=== PATIENT | male | born 1990 ===

== ENCOUNTER 2019-10-30 11:51 | Emergency (ER) | payer BC ==
--- NOTE | 2019-10-30 15:03 | UC ---
Back Pain HPI - HPI Summary HPI Summary: 29-year-old male presents with complaints of low back pain. States yesterday he was sitting in his office chair and twisted to grab something when he felt a pop in his lower back followed by sudden pain. States pain is constant and worsens with movement, bending, and lifting. Pain is nonradiating. He has been taking ibuprofen 600 mg without relief. Denies difficulty ambulating, numbness, tingling, weakness of the lower extremities, loss of bowel or bladder control. - History of Current Complaint Chief Complaint: UCBackPain Stated Complaint: BACK PAIN Time Seen by Provider: 10/30/19 14:59 Hx Obtained From: Patient Pain Intensity: 10 - Allergies/Home Medications Allergies/Adverse Reactions: Allergies Allergy/AdvReac Type Severity Reaction Status Date / Time No Known Allergies Allergy Verified 10/30/19 12:34 PMH/Surg Hx/FS Hx/Imm Hx Previously Healthy: Yes - Denies significant PMH - Surgical History Surgical History: None - Family History Known Family History: Positive: Non-Contributory - Social History Occupation: Employed Full-time Lives: With Family Alcohol Use: Occasionally Substance Use Type: None Smoking Status (MU): Never Smoked Tobacco Review of Systems All Other Systems Reviewed And Are Negative: Yes Constitutional: Negative: Fever, Chills Respiratory: Positive: Negative Cardiovascular: Positive: Negative Gastrointestinal: Positive: Negative Genitourinary: Positive: Negative Musculoskeletal: Positive: Other: - See HPI Neurological: Negative: Weakness, Paresthesia, Numbness Is Patient Immunocompromised?: No Physical Exam - Summary Physical Exam Summary: GENERAL APPEARANCE: Well developed, well nourished, alert and cooperative, and appears to be in no acute distress. CARDIAC: Normal S1 and S2. No S3, S4 or murmurs. Rhythm is regular. There is no peripheral edema, cyanosis or pallor. Extremities are warm and well perfused. Capillary refill is less than 2 seconds. Peripheral pulses intact. LUNGS: Clear to auscultation without rales, rhonchi, wheezing or diminished breath sounds. ABDOMEN: Positive bowel sounds. Soft, nondistended, nontender. No guarding or rebound. No masses or hepatosplenomegally. MUSKULOSKELETAL: ROM intact to all extremities. No joint erythema or tenderness. Normal muscular development. Normal gait. BACK: No midline spinal deformity or tenderness. Bilateral lower lumbar paraspinous soft tissue tenderness without muscular spasm. NEUROLOGICAL: Strength and sensation symmetric and intact to the lower extremities. SKIN: Skin normal color, texture and turgor with no lesions or eruptions. Triage Information Reviewed: Yes Vital Signs: Initial Vital Signs Temp 99 F 10/30/19 12:30 Pulse 70 10/30/19 12:30 Resp 16 10/30/19 12:30 BP 149/106 10/30/19 12:30 Pulse Ox 100 10/30/19 12:30 Vital Signs Reviewed: Yes Back Pain Course/Dx - Course Course Of Treatment: 29-year-old male presents with complaints of low back pain. States yesterday he was sitting in his office chair and twisted to grab something when he felt a pop in his lower back followed by sudden pain. States pain is constant and worsens with movement, bending, and lifting. Pain is nonradiating. He has been taking ibuprofen 600 mg without relief. Denies difficulty ambulating, numbness, tingling, weakness of the lower extremities, loss of bowel or bladder control. Afebrile. Hypertensive otherwise vital signs stable. Patient had no midline spinal deformity or tenderness. There was some bilateral lower lumbar paraspinous soft tissue tenderness without muscular spasm. Strength and sensation were intact bilateral lower extremities. Remainder of exam was unremarkable. Discussed with patient that his history and physical are consistent with a low back strain and I'm recommending conservative treatment at this time including [id number] NSAIDs, cyclobenzaprine 10 mg 1 tablet every 8 hours as needed for severe pain or spasm, and heat therapy. He is to return here or follow up with primary care in 7 days if symptoms are not improving. Anticipatory guidance warning symptoms were reviewed with the patient. Verbalizes understanding and agrees with plan of care. - Differential Dx/Diagnosis Differential Diagnosis/HQI/PQRI: Herniated Disc, Renal Colic, Strain Provider Diagnosis: Acute low back pain Discharge ED - Sign-Out/Discharge Documenting (check all that apply): Patient Departure All imaging exams completed and their final reports reviewed: No Studies - Discharge Plan Condition: Stable Disposition: HOME Prescriptions: Cyclobenzaprine HCl 10 mg PO Q8HR PRN #21 tablet PRN Reason: Spasms - Back Patient Education Materials: Acute Low Back Pain (ED), Lower Back Exercises (ED ) Referrals: No Primary Care Phys,NOPCP [Primary Care Provider] - [facility] [Outside] Additional Instructions: Your history exam are consistent with an acute low back strain. Continue to take ibuprofen 600 mg every 6 hours as needed for pain. Take with food avoid upset stomach. Take cyclobenzaprine 10 mg 1 tablet every 8 hours as needed for severe pain or spasm. Be aware that this medication will cause drowsiness and to not take and drive or operate machinery. Apply heating pad to the affected area for 15-20 minutes at least 4 times a day to help relax the muscles and eased the pain. Return here or follow up in primary care in 1 week if symptoms are not improving. I did provide you with the contact information for the [facility] physician referral service if he needs assistance with establishing with a provider. Seek immediate medical attention in the emergency room if you develop fever greater than 100.5 F, have severe back pain that is not managed with the pain medication, have difficulty you are unable to walk, develop numbness, tingling, or weakness of the legs, lose control of her bowel or bladder, or have any worsening of symptoms. - Billing Disposition and Condition Condition: STABLE Disposition: Home
[2019-10-30 16:01] VITALS: BP 140/90
== END 2019-10-30 15:58 | disposition home or self-care (01) ==
LOC: UCEAST 11:51
DX: M54.5 Low back pain (principal)
CPT/HCPCS: 99202; G0463